=== PATIENT | female | born 1955 | race Hispanic/Latino ===

== ENCOUNTER 2018-03-18 12:34 | Outpatient (CLI) | payer BC | END 2018-03-18 12:35 | disposition home or self-care (01) | LOC: C.PAT 12:34 | DX: M72.2 Plantar fascial fibromatosis (principal); M65.871 Other synovitis and tenosynovitis, right ankle and foot ==

== ENCOUNTER 2018-03-25 06:15 | Day surgery (SDC) | payer BC ==
[2018-03-18 13:00] VITALS: BMI 47.2
[2018-03-25] MEDS ORDERED: Bupivacaine 0.25% 20 ML INJ IJ ONE (07:35)
[2018-03-25] MEDS ORDERED: Lidocaine Hydrochloride 10 ML INJ ONE (07:35)
[2018-03-25] MEDS ORDERED: ceFAZolin 1 gm in NS 2 GM/200 ML BAG IVPB ONE (07:36)
[2018-03-25] MEDS ORDERED: Midazolam 2 MG/2 ML VIAL ONE (08:01)
[2018-03-25] MEDS ORDERED: Propofol 10 mg/ml Inj (20 ML) ONE ×3 (08:01→08:30)
[2018-03-25] MEDS ORDERED: Oxycodone/Acetaminophen 5/325 mg Tab PO PRN ×2 (09:09)
--- NOTE | 2018-03-25 09:13 | PCM.SURG1 ---
Surgeon's Initial Post Op Note - Surgeon's Notes Surgeon: JAREK LopezM Human Factors Engineer: Alis Brizuela, PGY1 Type of Anesthesia: IV Sedation, Local Anesthesia Administered By: Dr Conn Pre-Operative Diagnosis: right foot plantar fasciitis and ingrown toe nail of right second medial border Operative Findings: see dictation. M: 3-0 nylon. Injectibles: 25 cc of 1:1 mixture of .25% marcaine and 1% lidocaine Post-Operative Diagnosis: same Operation Performed: Right foot release of plantar fascia with rasping of bone from calcaneus and second digit medial border nail matrixectomy Specimen/Specimens Removed: right second digit nail Estimated Blood Loss: EBL {In ML}: 1 Blood Products Given: N/A Drains Used: No Drains Post-Op Condition: Good Date of Surgery/Procedure: 03/25/18 Time of Surgery/Procedure: 09:13
[2018-03-25] MEDS ORDERED: Lactated Ringer's 1,000 ML IV SCH (09:15)
[2018-03-25] MEDS ORDERED: Morphine 4 MG/ML VIAL ONE ×2 (09:15→09:31)
[2018-03-25 10:48] VITALS: RESP 18; TEMP 97.8
[2018-03-25] MEDS ORDERED: oxyCODONE 10 mg Immediate Release Tab PO PRN (11:35)
[2018-03-25 13:35] VITALS: BP 116/74; PULSE 63; O2SAT 99
--- NOTE | 2018-03-26 02:58 | OP ---
PROCEDURE DATE: 03/25/2018 SURGEON: Oumar Mccoy DPM METAL BUMPER: Alis Brizuela, PGY-1 ANESTHESIOLOGIST: Dr. Brooks. ANESTHESIA: IV sedation with local anesthesia. PREOPERATIVE DIAGNOSES: Right foot plantar fascitis and ingrowing toenail of the right second digit, medial border. POSTOPERATIVE DIAGNOSES: Right foot plantar fascitis and ingrowing toenail of the right second digit, medial border. PROCEDURE: Release of plantar fascia with grafting of bone from calcaneus and second digit medial border nail matrixectomy. INDICATIONS: The patient is a 62-year-old female with the above diagnoses. The patient has exhausted all conservative treatment at this time and now requires surgical intervention. The patient signed the consent after careful explanation of risks, benefits, complications, and alternatives for the surgical procedure. No guarantees were given nor implied. NPO status was confirmed prior to taking the patient to the OR. PREPARATION: The patient was brought into the operating room and placed on the operating room table in a supine position. After induction of IV sedation, time-out was performed for identification of the correct patient and procedure. A well-padded pneumatic ankle tourniquet was applied to the patient's right ankle in a supramalleolar position. The patient received a total of 25 mL of 1:1 mixture of 0.25% Marcaine, 1% lidocaine plain in a local block type fashion to the posterior tibial nerve, medial aspect of the heel and in a ring block type fashion to the second digit. Once local anesthesia was achieved, the right foot was then prepped and draped in a normal sterile manner. The patient's right foot was then exsanguinated and Pneumatic ankle tourniquet was inflated to 250 mmHg and the procedure began. PROCEDURE #1: Attention was directed to the plantar aspect of right foot where under C-arm guidance location of plantar heel spur was identified. A 1 cm linear longitudinal incision was made on the plantar aspect of the patient's right heel using a #15 blade. The incision was deepened through subcutaneous tissue. Through windshield motion of the #15 blade, the medial bands of the plantar fascia was released and was confirmed by using a hemostat to seal for any remaining fibers. Next, utilizing a rasp and under C-arm guidance, the plantar heel spur was removed. Wound was then flushed with copious amount of sterile normal saline, and the skin was reapproximated and coapted utilizing 3-0 nylon in a simple suture technique. PROCEDURE #2: Attention was then directed to the medial border of the second right digit. With the use of [place] Anvil, the nail was cut, and with the use of straight hemostat, the nail was freed and removed from the nail bed. At this point, curette was used to debride and the area was then cauterized. The heel and the nail bed then dressed with Xeroform, 4x4 gauze, Kerlix, and Coban. POSTOPERATIVE CONDITION: The patient tolerated the anesthesia and procedure well and was escorted to the recovery room with vital signs stable and neurovascular status intact to the right leg. The patient will follow up with Dr. Mccoy within a week. The patient was discharged to [facility]. Alis Brizuela Oumar Mccoy DPM TONEY
== END 2018-03-25 12:40 | disposition home or self-care (01) ==
LOC: C.SDS 06:15
PROVIDERS: ATTEND Podiatrist
DX: M72.2 Plantar fascial fibromatosis (principal); L60.0 Ingrowing nail; M77.31 Calcaneal spur, right foot; M65.871 Other synovitis and tenosynovitis, right ankle and foot; F17.210 Nicotine dependence, cigarettes, uncomplicated
CPT/HCPCS: 11750; 28119; 88304; J0690; J2001; J2250; J2270; J2704; J3010